=== PATIENT | female | born 1960 | race Caucasian/White ===

== ENCOUNTER 2018-02-07 12:33 | Emergency (ER) | payer OTHER ==
[~2018-02-07] VITALS: Ht 157.5 cm; Wt 99.8 kg
[~2018-02-07 12:33] MED LIST: OMEP20TA5 PO; [UNRECOGNIZED DRUG - REMARK] PO; [UNRECOGNIZED DRUG - REMARK] PO; [UNRECOGNIZED DRUG - REMARK] PO; [UNRECOGNIZED DRUG - REMARK] PO
[2018-02-07] MEDS ORDERED: KETOROLAC TROMETHAMINE 30 MG INJ IM ONE (13:00)
[2018-02-07] MEDS ORDERED: KETOROLAC TROMETHAMINE 30 MG INJ ONE (13:17)
[2018-02-07 13:31] LABS: *BILIRUBIN,URIN NEGATIVE (NEGATIVE); *BLOOD, URINE NEGATIVE (NEGATIVE); *CLARITY,URINE CLEAR (CLEAR); *COLOR,URINE YELLOW (YELLOW); *KETONES,URINE TRACE (NEGATIVE); *PROTEIN,URINE NEGATIVE (NEGATIVE); *UROBILINOGEN,URINE 0.2 E.U./dl (NORMAL); LEUKOCYTE ESTERASE ,URINE NEGATIVE (NEGATIVE); NITRITE, URINE NEGATIVE (NEGATIVE); UGLUCOSE NEGATIVE (NEGATIVE)
[2018-02-07 13:32] LABS: BACTERIA,URINE FEW /HPF (NONE SEEN); RBC,URINE 0-3 /HPF (0-3); SQUAMOUS EPITHELIAL CELL,UR FEW /HPF (NONE SEEN); WBC,URINE 0-3 /HPF (0-3)
--- NOTE | 2018-02-07 14:38 | NUR ---
Pt returned from XR. Pt stable and nad noted upon returning.
--- NOTE | 2018-02-07 14:55 | NUR ---
Patient discharged to home in stable conditon. Written and verbal after care instructions given. Patient verbalizes understanding of instructions.
== END 2018-02-07 15:00 | disposition home or self-care (01) ==
LOC: ER 12:34
DX: M54.5 Low back pain (principal); I10 Essential (primary) hypertension; E78.5 Hyperlipidemia, unspecified; J45.909 Unspecified asthma, uncomplicated; K21.9 Gastro-esophageal reflux disease without esophagitis; Z79.899 Other long term (current) drug therapy
CPT/HCPCS: 72072; 72100; A4663; J1885

== ENCOUNTER 2018-08-26 19:22 | Emergency (ER) | payer OTHER ==
[~2018-08-26] VITALS: Ht 157.5 cm; Wt 99.8 kg
[2018-08-26] MEDS ORDERED: CETIRIZINE HCL 10 MG (19:39)
[2018-08-26] MEDS ORDERED: DULOXETINE HCL 60 MG (19:39)
[2018-08-26] MEDS ORDERED: GABAPENTIN 300 MG (19:39)
[2018-08-26] MEDS ORDERED: BENAZEPRIL HCL 20 MG (19:39)
[2018-08-26] MEDS ORDERED: IBUPROFEN 400 MG (19:39)
[2018-08-26] MEDS ORDERED: FLUTICASONE PROP (19:39)
[2018-08-26] MEDS ORDERED: FLUOXETINE HCL 20 MG (19:39)
[2018-08-26] MEDS ORDERED: HYDROCHLOROTHIAZIDE 25 MG (19:39)
[2018-08-26] MEDS ORDERED: AMITRIPTYLINE HCL 100 MG (19:39)
[2018-08-26] MEDS ORDERED: ATORVASTATIN 80 MG (19:39)
[2018-08-26] MEDS ORDERED: ONDANSETRON 4 MG/2 ML VIAL IV ONE (20:00)
[2018-08-26] MEDS ORDERED: MORPHINE SULFATE 2 MG/1 ML DISP.SYRIN IV ONE (20:00)
[2018-08-26] MEDS ORDERED: IV NORMAL SALINE 1000 ML BAG IV ONE (20:00)
[2018-08-26] MEDS ORDERED: MORPHINE SULFATE 4 MG/1 ML DISP.SYRIN ONE (20:01)
[2018-08-26] MEDS ORDERED: ONDANSETRON 4 MG/2 ML VIAL ONE (20:01)
[2018-08-26 20:03] LABS: BASOPHILS % (AUTO) 0.3 % (0.0-2.0); EOSINOPHILS # (AUTO) 0.1 K/uL (0.0-0.7); EOSINOPHILS % (AUTO) 1.4 % (0.0-7.0); HEMATOCRIT 34.6 % (31.2-41.9); HEMOGLOBIN 11.9 g/dL (10.9-14.3); LYMPHOCYTES % (AUTO) 41.1 % (20.5-51.5); MEAN CORPUSCULAR HEMOGLOBIN 30.2 uug (24.7-32.8); MEAN CORPUSCULAR HGB CONC 34 g/dL (32.3-35.6); MEAN CORPUSCULAR VOLUME 87.9 fL (75.5-95.3); MONOCYTES # (AUTO) 0.7 K/uL (2.0-10.0); MONOCYTES % (AUTO) 9.3 % (0.0-11.0); NEUTROPHILS # (AUTO) 3.5 K/uL (1.8-8.9); NEUTROPHILS % (AUTO) 47.9 % (38.5-71.5); PLATELET COUNT (AUTO) 318 K/uL (179-408); RED BLOOD CELL COUNT(AUTO) 3.93 MIL/uL (3.63-4.92); WHITE BLOOD COUNT (AUTO) 7.4 K/uL (3.8-11.8)
[2018-08-26 20:10] LABS: CREATININE 0.7 mg/dL (0.6-1.3); POTASSIUM 3.9 mmol/L (3.5-5.1)
[2018-08-26 20:16] LABS: BILIRUBIN,DIRECT 0.1 mg/dL (0.0-0.2); BILIRUBIN,TOTAL 0.2 mg/dL (0.2-1.0); TOTAL PROTEIN, SERUM 7.7 g/dL (6.4-8.2)
[2018-08-26] MEDS ORDERED: IOHEXOL 300MG/ML 100 ML INFUS..BTL ONE (20:32)
[2018-08-26] MEDS ORDERED: IV NORMAL SALINE 250 ML IV ONE (20:32)
[2018-08-26] MEDS ORDERED: NORMAL SALINE FLUSH 10 ML DISP.SYRIN ONE (20:32)
[2018-08-26] MEDS ORDERED: SWABABLE VALVE TRANSFER SET EA MC ONE (20:32)
[2018-08-26] MEDS ORDERED: HYDROMORPHONE 1 MG/1 ML DISP.SYRIN IV ONE (20:45)
[2018-08-26] MEDS ORDERED: HYDROMORPHONE 1 MG/1 ML DISP.SYRIN ONE (21:03)
--- NOTE | 2018-08-26 21:15 | NUR ---
Patient had slight adverse reaction to administered medication. She reported feeling SOB, and appeared to be in distress dispite normal vital signs, normal lung sounds, and no evidence of rash. ERMD notified, orders received.
[2018-08-26] MEDS ORDERED: diphenhydrAMINE 50 MG/1 ML VIAL ONE (21:24)
[2018-08-26] MEDS ORDERED: LIDOCAINE 5% PATCH TD ONE ×2 (21:24→21:30)
[2018-08-26] MEDS ORDERED: diphenhydrAMINE 50 MG/1 ML VIAL IV ONE (21:30)
--- NOTE | 2018-08-26 22:00 | NUR ---
Patient feels improved, SOB resolved. Patient is slightly lethargic due to medications but feels safe and ready to return home. ERMD notified.
--- NOTE | 2018-08-26 22:13 | NUR ---
Patient discharged to home in stable conditon. Written and verbal after care instructions given. Patient verbalizes understanding of instructions.
== END 2018-08-26 22:14 | disposition home or self-care (01) ==
LOC: ER 19:25
DX: M54.9 Dorsalgia, unspecified (principal); I10 Essential (primary) hypertension; E78.5 Hyperlipidemia, unspecified; J45.909 Unspecified asthma, uncomplicated; K21.9 Gastro-esophageal reflux disease without esophagitis; Z90.49 Acquired absence of other specified parts of digestive tract; Z79.1 Long term (current) use of non-steroidal anti-inflammatories (NSAID); Z79.899 Other long term (current) drug therapy
CPT/HCPCS: 74177; 80048; 80076; 85025; 96374; 96375; 99284; J1170; J1200; J2270; J2405; Q9967; 36415; A4663; J3490; J7030; J7050